=== PATIENT | male | born 1975 | race Caucasian/White ===

== ENCOUNTER 2016-08-07 03:47 | Emergency (ER) | payer OTHER ==
[2016-08-07 05:24] LABS: HEMOGLOBIN 15.9 gm/dl (14.0-17.5); RED BLOOD COUNT 5.45 M/UL (4.20-5.50); WHITE BLOOD COUNT 9.2 K/UL (4.5-11.0)
[2016-08-07 05:43] LABS: BUN/CREATININE RATIO 10 (0-10)
== END 2016-08-07 06:55 | disposition home or self-care (01) ==
LOC: ER1 03:47
PROVIDERS: Physician Assistant
DX: L02.414 Cutaneous abscess of left upper limb (principal); F17.210 Nicotine dependence, cigarettes, uncomplicated; Z88.0 Allergy status to penicillin; Z88.2 Allergy status to sulfonamides
CPT/HCPCS: 36415; 80053; 85025; 87040; 87070; 87077; 87205; 96365; 99283; J7030; J7050

== ENCOUNTER 2020-11-04 22:23 | Emergency (ER) | payer OTHER ==
[~2020-11-04 22:23] MED LIST: KEFLEX500 MG PO
== END 2020-11-05 01:50 | disposition home or self-care (01) ==
LOC: ER1 22:23
DX: M54.5 Low back pain (principal); F17.200 Nicotine dependence, unspecified, uncomplicated; Z88.0 Allergy status to penicillin; Z88.2 Allergy status to sulfonamides
CPT/HCPCS: 81001; 96374; 99283; J1885

== ENCOUNTER 2020-12-26 10:25 | Emergency (ER) | payer OTHER ==
[2020-12-26 10:56] LABS: HEMOGLOBIN 15.1 gm/dl (14.0-17.5); RED BLOOD COUNT 5.13 M/UL (4.20-5.50); WHITE BLOOD COUNT 11.1 K/UL (4.5-11.0)
[2020-12-26 11:25] LABS: BUN/CREATININE RATIO 8 (0-10)
== END 2020-12-26 14:15 | disposition home or self-care (01) ==
LOC: ER1 10:25
PROVIDERS: Emergency Medicine
DX: R07.9 Chest pain, unspecified (principal); R06.02 Shortness of breath; Z88.0 Allergy status to penicillin; Z88.2 Allergy status to sulfonamides; Z79.899 Other long term (current) drug therapy
CPT/HCPCS: 71045; 80053; 82550; 82553; 83874; 84484; 85025; 93005; 99285